=== PATIENT | male | born 1980 | race Caucasian/White ===

== ENCOUNTER 2019-01-04 12:26 | Inpatient (IN) | payer OTHER ==
[2019-01-04 13:16] VITALS: BMI 24.7
--- NOTE | 2019-01-04 15:19 | HP ---
CIWA Score Nausea/Vomitin Muscle Tremors: 2 Anxiety: 2 Agitation: 2 Paroxysmal Sweats: 1-Minimal Palms Moist Orientation: 0-Oriented Tacttile Disturbances: 1-Very Mild Itch/Numbness Auditory Disturbances: 1-Very Mild Visual Disturbances: 0-None Headache: 2-Mild CIWA-Ar Total Score: 13 - Admission Criteria OASAS Guidelines: Admission for Medically Managed Detox: Requires at least one of the followin. CIWA greater than 12 2. Seizures within the past 24 hours 3. Delirium tremens within the past 24 hours 4. Hallucinations within the past 24 hours 5. Acute intervention needed for co occurring medical disorder 6. Acute intervention needed for co occurring psychiatric disorder 7. Severe withdrawal that cannot be handled at a lower level of care (continued vomiting, continued diarrhea, abnormal vital signs) requiring intravenous medication and/or fluids 8. Admission ROS BHS - HPI Chief Complaint: i need help to stop drinking alcohol Allergies/Adverse Reactions: Allergies Allergy/AdvReac Type Severity Reaction Status Date / Time No Known Allergies Allergy Verified 01/04/19 13:43 History of Present Illness: this 38 years old male with alcohol dependence seeking detox,withdrawal symptom, last detox in 10/29 at [facility] dry skin history of balanitis nicotine dependence 6 cigarette/day weight loss no significant period of sobriety plan for out patient program syncope alcohol related Exam Limitations: No Limitations - Ebola screening Have you traveled outside of the country in the last 21 days: No Have you had contact with anyone from an Ebola affected area: No Have you been sick,other than usual withdrawal symptoms: Yes Do you have a fever: No - Review of Systems Constitutional: Loss of Appetite, Malaise, Night Sweats, Changes in sleep, Unintentional Wgt. Loss EENT: reports: Nose Congestion Respiratory: reports: No Symptoms reported Cardiac: reports: No Symptoms Reported GI: reports: Nausea, Poor Appetite, Indigestion : reports: No Symptoms Reported Musculoskeletal: reports: Back Pain, Muscle Pain Integumentary: reports: Dryness Neuro: reports: Headache, Tremors Endocrine: reports: No Symptoms Reported Hematology: reports: No Symptoms Reported Psychiatric: reports: No Sypmtoms Reported, Judgement Intact, Mood/Affect Appropiate, Orientated x3 Other Systems: Reviewed and Negative Patient History - Patient Medical History Hx Anemia: No Hx Asthma: No Hx Chronic Obstructive Pulmonary Disease (COPD): No Hx Cancer: No Hx Cardiac Disorders: No Hx Congestive Heart Failure: No Hx Hypertension: No Hx Hypercholesterolemia: No Hx Pacemaker: No HX Cerebrovascular Accident: No Hx Seizures: No Hx Dementia: No Hx Diabetes: No Hx Gastrointestinal Disorders: No Hx Liver Disease: No Hx Genitourinary Disorders: No Hx Sexually Transmitted Disorders: No Hx Renal Disease (ESRD): No Hx Thyroid Disease: No Hx Human Immunodeficiency Virus (HIV): No (last 10/29 negative) Hx Hepatitis C: No Hx Depression: No Hx Suicide Attempt: No Hx Bipolar Disorder: No Hx Schizophrenia: No Other Medical History: no suicidal,no homicidal - Patient Surgical History Past Surgical History: No Hx Neurologic Surgery: No Hx Cataract Extraction: No Hx Cardiac Surgery: No Hx Lung Surgery: No Hx Breast Surgery: No Hx Breast Biopsy: No Hx Abdominal Surgery: No Hx Appendectomy: No Hx Cholecystectomy: No Hx Genitourinary Surgery: No Hx Section: No Hx Orthopedic Surgery: No Anesthesia Reaction: No - PPD History Previous Implant?: Yes Documented Results: Negative w/o proof Implanted On Prior R Admission?: No PPD to be Administered?: Yes - Smoking Cessation Smoking history: Current every day smoker Aproximately how many cigarettes per day: 6 Cigars Per Day: 0 Hx Chewing Tobacco Use: No Initiated information on smoking cessation: Yes 'Breaking Loose' booklet given: 01/04/19 - Substance & Tx. History Hx Alcohol Use: Yes Hx Substance Use: Yes Substance Use Type: Alcohol Hx Substance Use Treatment: Yes (10/29 [facility] completed) - Substances Abused Alcohol Route: Oral Frequency: Daily Amount used: 6 CANS OF BEER: 1 SHOT OF MIR GOOSE Age of first use: 14 Date of Last Use: 01/04/19 Family Disease History - Family Disease History Family History: Denies Admission Physical Exam BHS - Vital Signs Vital Signs: Vital Signs - 24 hr 01/04/19 13:13 Temperature 97.8 F Pulse Rate 66 Respiratory 18 Rate Blood Pressure 124/82 - Physical General Appearance: Yes: Moderate Distress, Tremorous, Irritable, Sweating, Anxious HEENTM: Yes: Normal ENT Inspection, ADRIANA, Pharynx Normal Respiratory: Yes: Lungs Clear, Normal Breath Sounds, No Respiratory Distress Neck: Yes: Within Normal Limits, Supple, Trachea in good position Breast: Yes: Within Normal Limits Cardiology: Yes: Within Normal Limits, Regular Rhythm, Regular Rate, S1, S2 Abdominal: Yes: Within Normal Limits, Normal Bowel Sounds, Non Tender, Flat, Soft Genitourinary: Yes: Within Normal Limits Back: Yes: Muscle Spasm Musculoskeletal: Yes: Back pain, Muscle Pain Extremities: Yes: Within Normal Limits, Tremors 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 NML intact, Fully Oriented, Alert, Motor Strength 5/5 Integumentary: Yes: Dry Lymphatic: Yes: Within Normal Limits - Diagnostic (1) Alcohol dependence with uncomplicated withdrawal Current Visit: Yes Status: Acute (2) Alcohol dependence, uncomplicated Current Visit: Yes Status: Acute (3) Syncope Current Visit: Yes Status: Acute (4) Weight loss Current Visit: Yes Status: Acute (5) Dehydration Current Visit: Yes Status: Acute (6) Dry skin Current Visit: Yes Status: Acute (7) Balanitis Current Visit: Yes Status: Acute Cleared for Admission [facility] - Detox or Rehab [facility] Level of Care: Medically Managed Detox Regimen/Protocol: Librium [facility] Breath Alcohol Content Breath Alcohol Content: 0 Urine Drug Screen - Results Drug Screen Negative: Yes Inpatient Rehab Admission - Rehab Decision to Admit Inpatient rehab admission?: No
[2019-01-04] MEDS ORDERED: METHOCARBAMOL 500 MG TABLET PO PRN (15:29)
[2019-01-04] MEDS ORDERED: MAGNESIUM CITRATE 300 ML BOTTLE PO PRN (15:29)
[2019-01-04] MEDS ORDERED: hydrOXYzine PAMOATE 25 MG CAPSULE (FP) PO PRN (15:29)
[2019-01-04] MEDS ORDERED: MAGNESIUM HYDROX 2400MG/30ML ORAL SUSPENSION 30 ML CUP PO PRN (15:29)
[2019-01-04] MEDS ORDERED: chlordiazePOXIDE HCL 25 MG CAPSULE PO PRN (15:29)
[2019-01-04] MEDS ORDERED: MAG HYDROX/AL HYDROX/SIMETH 30 ML UNIT-DOSE CUP PO PRN (15:29)
[2019-01-04] MEDS ORDERED: MENTHOL/PHENOL 1 EACH UD MM PRN (15:29)
[2019-01-04] MEDS ORDERED: ACETAMINOPHEN 325 MG TABLET (FP) PO PRN ×2 (15:29)
[2019-01-04] MEDS ORDERED: BISMUTH SUBSALICYLATE 524 MG/30 ML UD PO PRN (15:29)
[2019-01-04] MEDS ORDERED: IBUPROFEN 400 MG TABLET (FP) PO PRN (15:29)
[2019-01-04] MEDS ORDERED: COLLOIDAL OATMEAL 1 BAR EACH TP PRN (15:36)
[2019-01-04] MEDS: chlordiazePOXIDE HCL 25 MG CAPSULE PO SCH ×2 (16:56→22:56)
[2019-01-04] MEDS ORDERED: AMMONIUM LACTATE 12% LOTION 225 GM BOTTLE TP SCH (22:00)
[2019-01-04] MEDS: NYSTATIN 100,000 UNIT/GM TOPICAL CREAM 15 GM TUBE TP SCH (22:55)
[2019-01-04] MEDS: THIAMINE HCL 100 MG TABLET (FP) PO SCH (22:56)
[2019-01-04] MEDS: MELATONIN 5 MG TABLETS PO PRN (22:56)
[2019-01-05] MEDS: chlordiazePOXIDE HCL 25 MG CAPSULE PO SCH ×4 (05:44→22:16)
[2019-01-05] MEDS: NYSTATIN 100,000 UNIT/GM TOPICAL CREAM 15 GM TUBE TP SCH ×2 (10:17→22:15)
[2019-01-05] MEDS: PRENATAL VITAMINS W/ FOLIC ACID TABLET (FP) PO SCH (10:17)
[2019-01-05 10:42] LABS: HEMATOCRIT 44.6 % (35.4-49); HEMOGLOBIN 14.5 GM/dL (11.7-16.9); MCH 30.3 pg (25.7-33.7); MCHC 32.6 g/dl (32.0-35.9); MEAN CELL VOLUME 92.9 fl (80-96); MEAN PLT VOLUME 9.5 fl (7.5-11.1); PLATELET COUNT 238 K/MM3 (134-434); RDW 13.5 % (11.9-15.9); WHITE BLOOD COUNT 7.2 K/mm3 (4.0-10.0)
[2019-01-05 11:23] LABS: SICKLE CELL SCREEN NEGATIVE (NEGATIVE)
[2019-01-05 11:35] LABS: ALBUMIN 4.1 g/dl (3.4-5.0); ALK PHOS 74 U/L (45-117); ANION GAP 6 MMOL/L (8-16); BILIRUBIN,TOTAL 0.3 mg/dL (0.2-1); BLOOD UREA NITROGEN 17 mg/dL (7-18); CALCIUM 8.8 mg/dL (8.5-10.1); CHLORIDE 104 mmol/L (98-107); CO2 26 mmol/L (21-32); CREATININE 1.1 mg/dL (0.55-1.3); GLUCOSE,RANDOM 96 mg/dL (74-106); POTASSIUM 4.2 mmol/L (3.5-5.1); SGOT/AST 17 U/L (15-37); SGPT/ALT 21 U/L (13-61); SODIUM 136 mmol/L (136-145); TOT PROT 7.2 g/dl (6.4-8.2)
--- NOTE | 2019-01-05 11:52 | EKG ---
Test Reason : Blood Pressure : / mmHG Vent. Rate : 063 BPM Atrial Rate : 063 BPM P-R Int : 166 ms QRS Dur : 110 ms QT Int : 384 ms P-R-T Axes : 065 032 041 degrees QTc Int : 392 ms NORMAL SINUS RHYTHM NORMAL ECG NO PREVIOUS ECGS AVAILABLE Confirmed by SARAH BETH MARTINEZ MD ([id number]) on 01/05/2019 11:52:19 AM Referred By: Confirmed By:SARAH BETH MARTINEZ MD
--- NOTE | 2019-01-05 14:32 | PN ---
[facility] CIWA - CIWA Score Nausea/Vomitin-No Nausea/No Vomiting Muscle Tremors: 1-None Visible, but [place] Anxiety: 1-Mildly Anxious Agitation: 1-Slight > Activity Paroxysmal Sweats: 1-Minimal Palms Moist Orientation: 1-Uncertain about Date Tacttile Disturbances: 0-None Auditory Disturbances: 0-None Visual Disturbances: 0-None Headache: 0-None Present CIWA-Ar Total Score: 5 S Progress Note (SOAP) Subjective: doing ok today with librium protocol tolerate food and fluid well Objective: 01/05/19 15:03 Vital Signs Temperature 98.1 F 01/05/19 14:54 Pulse Rate 66 01/05/19 14:54 Respiratory Rate 16 01/05/19 14:54 Blood Pressure 120/76 01/05/19 14:54 O2 Sat by Pulse Oximetry (%) Laboratory Last Values WBC 7.2 K/mm3 (4.0-10.0) 01/05/19 06:00 RBC 4.80 M/mm3 (4.00-5.60) 01/05/19 06:00 Hgb 14.5 GM/dL (11.7-16.9) 01/05/19 06:00 Hct 44.6 % (35.4-49) 01/05/19 06:00 MCV 92.9 fl (80-96) 01/05/19 06:00 MCH 30.3 pg (25.7-33.7) 01/05/19 06:00 MCHC 32.6 g/dl (32.0-35.9) 01/05/19 06:00 RDW 13.5 % (11.9-15.9) 01/05/19 06:00 Plt Count 238 K/MM3 (134-434) 01/05/19 06:00 MPV 9.5 fl (7.5-11.1) 01/05/19 06:00 Sickle Cell Screen Negative (NEGATIVE) 01/05/19 06:00 Sodium 136 mmol/L (136-145) 01/05/19 06:00 Potassium 4.2 mmol/L (3.5-5.1) 01/05/19 06:00 Chloride 104 mmol/L (98-107) 01/05/19 06:00 Carbon Dioxide 26 mmol/L (21-32) 01/05/19 06:00 Anion Gap 6 MMOL/L (8-16) L 01/05/19 06:00 BUN 17 mg/dL (7-18) 01/05/19 06:00 Creatinine 1.1 mg/dL (0.55-1.3) 01/05/19 06:00 Creat Clearance w eGFR 75.32 (>60) 01/05/19 06:00 Random Glucose 96 mg/dL (74-106) 01/05/19 06:00 Calcium 8.8 mg/dL (8.5-10.1) 01/05/19 06:00 Total Bilirubin 0.3 mg/dL (0.2-1) 01/05/19 06:00 AST 17 U/L (15-37) 01/05/19 06:00 ALT 21 U/L (13-61) 01/05/19 06:00 Alkaline Phosphatase 74 U/L (45-117) 01/05/19 06:00 Total Protein 7.2 g/dl (6.4-8.2) 01/05/19 06:00 Albumin 4.1 g/dl (3.4-5.0) 01/05/19 06:00 Urine Color Yellow 01/05/19 11:40 Urine Appearance Clear 01/05/19 11:40 Urine pH 5.5 (5.0-8.0) 01/05/19 11:40 Ur Specific [place] 1.005 (1.010-1.035) L 01/05/19 11:40 Urine Protein Negative (NEGATIVE) 01/05/19 11:40 Urine Glucose (UA) Negative (NEGATIVE) 01/05/19 11:40 Urine Ketones Negative (NEGATIVE) 01/05/19 11:40 Urine Blood Negative (NEGATIVE) 01/05/19 11:40 Urine Nitrite Negative (NEGATIVE) 01/05/19 11:40 Urine Bilirubin Negative (NEGATIVE) 01/05/19 11:40 Urine Urobilinogen 0.2 mg/dL (0.2-1.0) 01/05/19 11:40 Ur Leukocyte Esterase Negative (NEGATIVE) 01/05/19 11:40 RPR Titer Nonreactive (NONREACTIVE) 01/05/19 08:00 HIV 1&2 Antibody Screen Negative 01/05/19 06:00 HIV P24 Antigen Negative 01/05/19 06:00 lab noted Assessment: 01/05/19 15:05 withdrawal sx Plan: continue detox
[2019-01-05 14:55] LABS: PH,URINE 5.5 (5.0-8.0); URINE APPEARANCE CLEAR; URINE BILIRUBIN NEGATIVE (NEGATIVE); URINE COLOR YELLOW; URINE GLUCOSE (UA) NEGATIVE (NEGATIVE); URINE KETONE NEGATIVE (NEGATIVE); URINE LEUK ESTERASE NEGATIVE (NEGATIVE); URINE NITRITE NEGATIVE (NEGATIVE); URINE PROTEIN NEGATIVE (NEGATIVE); URINE UROBILINOGEN 0.2 mg/dL (0.2-1.0)
[2019-01-05] MEDS: MELATONIN 5 MG TABLETS PO PRN (22:16)
[2019-01-05] MEDS: THIAMINE HCL 100 MG TABLET (FP) PO SCH (22:16)
[2019-01-06] MEDS: chlordiazePOXIDE HCL 25 MG CAPSULE PO SCH ×2 (05:45→10:22)
[2019-01-06] MEDS: PRENATAL VITAMINS W/ FOLIC ACID TABLET (FP) PO SCH (10:22)
[2019-01-06] MEDS: NYSTATIN 100,000 UNIT/GM TOPICAL CREAM 15 GM TUBE TP SCH (10:22)
--- NOTE | 2019-01-06 16:29 | PN ---
[facility] CIWA - CIWA Score Nausea/Vomitin-No Nausea/No Vomiting Muscle Tremors: 2 Anxiety: 3 Agitation: 0-Normal Activity Paroxysmal Sweats: 2 Orientation: 0-Oriented Tacttile Disturbances: 2-Mild Itch/Numbness/Burn Auditory Disturbances: 2-Mild Harshness/Frighten Visual Disturbances: 1-Very Mild Sensitivity Headache: 0-None Present CIWA-Ar Total Score: 12 BHS Progress Note (SOAP) Subjective: Sweating, Tremors (Mild), Anxious. Objective: PATIENT A & O X 3, OBSERVED AMBULATING ON UNIT. IN NO ACUTE DISTRESS. 01/06/19 16:28 Vital Signs Temperature 98.4 F 01/06/19 13:42 Pulse Rate 62 01/06/19 13:42 Respiratory Rate 18 01/06/19 13:42 Blood Pressure 104/60 01/06/19 13:42 O2 Sat by Pulse Oximetry (%) Laboratory Tests 01/05/19 01/05/19 01/05/19 06:00 06:00 06:00 WBC 7.2 RBC 4.80 Hgb 14.5 Hct 44.6 MCV 92.9 MCH 30.3 MCHC 32.6 RDW 13.5 Plt Count 238 MPV 9.5 Sickle Cell Screen Negative Sodium 136 Potassium 4.2 Chloride 104 Carbon Dioxide 26 Anion Gap 6 L BUN 17 Creatinine 1.1 Creat Clearance w eGFR 75.32 Random Glucose 96 Calcium 8.8 Total Bilirubin 0.3 AST 17 ALT 21 Alkaline Phosphatase 74 Total Protein 7.2 Albumin 4.1 Urine Color Urine Appearance Urine pH Ur Specific [place] Urine Protein Urine Glucose (UA) Urine Ketones Urine Blood Urine Nitrite Urine Bilirubin Urine Urobilinogen Ur Leukocyte Esterase RPR Titer HIV 1&2 Antibody Screen Negative HIV P24 Antigen Negative 01/05/19 01/05/19 08:00 11:40 WBC RBC Hgb Hct MCV MCH MCHC RDW Plt Count MPV Sickle Cell Screen Sodium Potassium Chloride Carbon Dioxide Anion Gap BUN Creatinine Creat Clearance w eGFR Random Glucose Calcium Total Bilirubin AST ALT Alkaline Phosphatase Total Protein Albumin Urine Color Yellow Urine Appearance Clear Urine pH 5.5 Ur Specific [place] 1.005 L Urine Protein Negative Urine Glucose (UA) Negative Urine Ketones Negative Urine Blood Negative Urine Nitrite Negative Urine Bilirubin Negative Urine Urobilinogen 0.2 Ur Leukocyte Esterase Negative RPR Titer Nonreactive HIV 1&2 Antibody Screen HIV P24 Antigen LABS NOTED. Assessment: 01/06/19 16:29 WITHDRAWAL SYMPTOMS. Plan: CONTINUE DETOX.
[2019-01-06] MEDS ORDERED: chlordiazePOXIDE HCL 10 MG CAPSULE PO PRN (17:00)
[2019-01-06] MEDS ORDERED: chlordiazePOXIDE HCL 10 MG CAPSULE PO SCH (17:00)
--- NOTE | 2019-01-06 17:26 | DS ---
[facility] Detox Discharge Summary Admission Date: 01/04/19 Discharge Date: 01/06/19 - Physical Exam Results Vital Signs: Vital Signs Temperature 98.4 F 01/06/19 13:42 Pulse Rate 62 01/06/19 13:42 Respiratory Rate 18 01/06/19 13:42 Blood Pressure 104/60 01/06/19 13:42 O2 Sat by Pulse Oximetry (%) - Treatment Hospital Course: Detox Protocol Followed - Medication Discharge Medications: Ambulatory Orders Nystatin Cream [Mycostatin] 1 applic TP BID 01/04/19 Parab/Cet Alc/Stryl Alc/Pg/Sls [Cetaphil Daily Facial Cleanser] 473 ml TP BID - AMA Did Patient Leave Against Medical Advice: Yes (states " I have things to take care of at home " )
[2019-01-06 17:31] VITALS: BP 125/72; PULSE 77; TEMP 98.5
[2019-01-07] MEDS ORDERED: chlordiazePOXIDE HCL 10 MG CAPSULE PO SCH (17:00)
== END 2019-01-06 17:50 | disposition left against medical advice (07) | DRG 770 ==
LOC: YASAS 12:26 → Y3N 15:45
PROVIDERS: ADMIT Surgery; ATTEND Surgery
PROC: HZ2ZZZZ Detoxification Services for Substance Abuse Treatment (ICD-10-PCS; principal; 2019-01-04)
DX: F10.230 Alcohol dependence with withdrawal, uncomplicated (principal); R55 Syncope and collapse; E86.0 Dehydration; L85.3 Xerosis cutis; N48.1 Balanitis; R63.4 Abnormal weight loss; Z68.24 Body mass index [BMI] 24.0-24.9, adult
CPT/HCPCS: 36415; 80053; 81003; 85027; 85660; 86593; 87389; 93005; 93010

== ENCOUNTER 2019-02-11 10:36 | Inpatient (IN) | payer OTHER ==
[2019-02-11 12:54] VITALS: BMI 27.6
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
[2019-02-11] MEDS ORDERED: MAGNESIUM HYDROX 2400MG/30ML ORAL SUSPENSION 30 ML CUP PO PRN (14:09)
[2019-02-11] MEDS ORDERED: MAG HYDROX/AL HYDROX/SIMETH 30 ML UNIT-DOSE CUP PO PRN (14:09)
[2019-02-11] MEDS ORDERED: BISMUTH SUBSALICYLATE 524 MG/30 ML UD PO PRN (14:09)
[2019-02-11] MEDS ORDERED: ACETAMINOPHEN 325 MG TABLET (FP) PO PRN (14:09)
[2019-02-11] MEDS ORDERED: IBUPROFEN 400 MG TABLET (FP) PO PRN (14:09)
[2019-02-11] MEDS ORDERED: MELATONIN 5 MG TABLETS PO PRN (14:09)
[2019-02-11] MEDS ORDERED: hydrOXYzine PAMOATE 25 MG CAPSULE (FP) PO PRN (14:09)
[2019-02-11] MEDS ORDERED: MAGNESIUM CITRATE 300 ML BOTTLE PO PRN (14:09)
[2019-02-11] MEDS ORDERED: MENTHOL/PHENOL 1 EACH UD MM PRN (14:09)
[2019-02-11] MEDS ORDERED: METHOCARBAMOL 500 MG TABLET PO PRN (14:09)
[2019-02-11] MEDS ORDERED: chlordiazePOXIDE HCL 25 MG CAPSULE PO PRN (14:09)
[2019-02-11] MEDS ORDERED: chlordiazePOXIDE HCL 25 MG CAPSULE PO ONE (14:45)
[2019-02-11] MEDS: chlordiazePOXIDE HCL 25 MG CAPSULE PO SCH ×2 (17:36→22:32)
[2019-02-11] MEDS: COLLOIDAL OATMEAL 1 BAR EACH TP PRN (22:31)
[2019-02-11] MEDS: THIAMINE HCL 100 MG TABLET (FP) PO SCH (22:32)
[2019-02-11] MEDS: NYSTATIN 100000 UNIT/GM TOPICAL OINTMENT 15 GM TUBE TP SCH (22:33)
[2019-02-11] MEDS: MINERAL OIL/PET HY-PHL TOPICAL OINTMENT 454 GM JAR TP SCH (22:36)
[2019-02-12] MEDS: chlordiazePOXIDE HCL 25 MG CAPSULE PO SCH ×4 (06:03→22:18)
[2019-02-12] MEDS: PRENATAL VITAMINS W/ FOLIC ACID TABLET (FP) PO SCH (10:50)
[2019-02-12] MEDS: NYSTATIN 100000 UNIT/GM TOPICAL OINTMENT 15 GM TUBE TP SCH ×2 (10:51→22:18)
[2019-02-12] MEDS: MINERAL OIL/PET HY-PHL TOPICAL OINTMENT 454 GM JAR TP SCH ×2 (10:51→22:18)
[2019-02-12 10:52] LABS: HEMATOCRIT 43.3 % (35.4-49); HEMOGLOBIN 14.7 GM/dL (11.7-16.9); MCH 31.2 pg (25.7-33.7); MCHC 33.9 g/dl (32.0-35.9); MEAN CELL VOLUME 92.2 fl (80-96); MEAN PLT VOLUME 8.8 fl (7.5-11.1); PLATELET COUNT 248 K/MM3 (134-434); RDW 13.2 % (11.9-15.9)
[2019-02-12 12:52] LABS: ALBUMIN 3.9 g/dl (3.4-5.0); ALK PHOS 65 U/L (45-117); ANION GAP 7 MMOL/L (8-16); BILIRUBIN,TOTAL 0.5 mg/dL (0.2-1); BLOOD UREA NITROGEN 11 mg/dL (7-18); CALCIUM 8.9 mg/dL (8.5-10.1); CHLORIDE 104 mmol/L (98-107); CO2 27 mmol/L (21-32); GLUCOSE,RANDOM 84 mg/dL (74-106); POTASSIUM 3.7 mmol/L (3.5-5.1); SGOT/AST 15 U/L (15-37); SGPT/ALT 25 U/L (13-61); SODIUM 138 mmol/L (136-145); TOT PROT 6.9 g/dl (6.4-8.2)
--- NOTE | 2019-02-12 15:37 | PN ---
S CIWA - CIWA Score Nausea/Vomitin Muscle Tremors: 4-Moderate,w/Arms Extend Anxiety: 3 Agitation: 3 Paroxysmal Sweats: 3 Orientation: 0-Oriented Tacttile Disturbances: 0-None Auditory Disturbances: 0-None Visual Disturbances: 0-None Headache: 0-None Present CIWA-Ar Total Score: 15 S Progress Note (SOAP) Subjective: Sweating, headache 04/19 Objective: 02/12/19 15:35 Last Vital Signs Temp Pulse Resp BP Pulse Ox 97.7 F 68 18 116/65 02/12/19 14:01 02/12/19 14:01 02/12/19 14:01 02/12/19 14:01 Laboratory Tests 02/12/19 02/12/19 02/12/19 07:50 07:50 07:50 WBC 7.0 RBC 4.70 Hgb 14.7 Hct 43.3 MCV 92.2 MCH 31.2 MCHC 33.9 RDW 13.2 Plt Count 248 MPV 8.8 Sodium 138 Potassium 3.7 Chloride 104 Carbon Dioxide 27 Anion Gap 7 L BUN 11 Creatinine 1.0 Creat Clearance w eGFR 84.08 Random Glucose 84 Calcium 8.9 Total Bilirubin 0.5 AST 15 ALT 25 Alkaline Phosphatase 65 Total Protein 6.9 Albumin 3.9 RPR Titer Nonreactive HIV 1&2 Antibody Screen HIV P24 Antigen 02/12/19 07:50 WBC RBC Hgb Hct MCV MCH MCHC RDW Plt Count MPV Sodium Potassium Chloride Carbon Dioxide Anion Gap BUN Creatinine Creat Clearance w eGFR Random Glucose Calcium Total Bilirubin AST ALT Alkaline Phosphatase Total Protein Albumin RPR Titer HIV 1&2 Antibody Screen Negative HIV P24 Antigen Negative Labs reviewed Assessment: 02/12/19 15:36 Withdrawal symptoms Plan: Continue detox Encouraged PO water hydration
[2019-02-12] MEDS: THIAMINE HCL 100 MG TABLET (FP) PO SCH (22:18)
[2019-02-13] MEDS: chlordiazePOXIDE HCL 25 MG CAPSULE PO SCH ×2 (05:52→10:23)
[2019-02-13] MEDS: NYSTATIN 100000 UNIT/GM TOPICAL OINTMENT 15 GM TUBE TP SCH ×2 (10:23→22:42)
[2019-02-13] MEDS: PRENATAL VITAMINS W/ FOLIC ACID TABLET (FP) PO SCH (10:23)
[2019-02-13] MEDS: MINERAL OIL/PET HY-PHL TOPICAL OINTMENT 454 GM JAR TP SCH ×2 (10:24→22:42)
--- NOTE | 2019-02-13 11:36 | PN ---
S CIWA - CIWA Score Nausea/Vomitin-No Nausea/No Vomiting Muscle Tremors: 3 Anxiety: 4-Mod. Anxious/Guarded Agitation: 2 Paroxysmal Sweats: 3 Orientation: 0-Oriented Tacttile Disturbances: 1-Very Mild Itch/Numbness Auditory Disturbances: 0-None Visual Disturbances: 0-None Headache: 2-Mild CIWA-Ar Total Score: 15 BHS Progress Note (SOAP) Subjective: Hot / Cold Sensations, Tremors, H/A. Objective: PATIENT A & O X 3, OBSERVED AMBULATING ON UNIT UNASSISTED. IN NO ACUTE DISTRESS. 02/13/19 11:35 Vital Signs Temperature 97.9 F 02/13/19 09:25 Pulse Rate 67 02/13/19 09:25 Respiratory Rate 18 02/13/19 09:25 Blood Pressure 112/80 02/13/19 09:25 O2 Sat by Pulse Oximetry (%) Laboratory Tests 02/12/19 02/12/19 02/12/19 07:50 07:50 07:50 WBC 7.0 RBC 4.70 Hgb 14.7 Hct 43.3 MCV 92.2 MCH 31.2 MCHC 33.9 RDW 13.2 Plt Count 248 MPV 8.8 Sodium 138 Potassium 3.7 Chloride 104 Carbon Dioxide 27 Anion Gap 7 L BUN 11 Creatinine 1.0 Creat Clearance w eGFR 84.08 Random Glucose 84 Calcium 8.9 Total Bilirubin 0.5 AST 15 ALT 25 Alkaline Phosphatase 65 Total Protein 6.9 Albumin 3.9 RPR Titer Nonreactive HIV 1&2 Antibody Screen HIV P24 Antigen 02/12/19 07:50 WBC RBC Hgb Hct MCV MCH MCHC RDW Plt Count MPV Sodium Potassium Chloride Carbon Dioxide Anion Gap BUN Creatinine Creat Clearance w eGFR Random Glucose Calcium Total Bilirubin AST ALT Alkaline Phosphatase Total Protein Albumin RPR Titer HIV 1&2 Antibody Screen Negative HIV P24 Antigen Negative LABS NOTED. Assessment: 02/13/19 11:36 WITHDRAWAL SYMPTOMS. Plan: CONTINUE DETOX. INCREASE DAILY PO FLUID / WATER INTAKE.
--- NOTE | 2019-02-13 15:25 | PN ---
[facility] Progress Note Note: Patient reports that he has had "a growth on his penis" for > 1 year now, for which he has consulted other medical providers with no resulting resolution to the condition. Patient denies discomfort or sensation of itch at affected site. Patient unable to discern any precipitating fact that might have caused condition to develop including any previous sexual contact. Several Small flat erythematous patches visualized near tip of penis. White, clear, milk-colored liquid noted on tip and shaft of penis. Based on Patient's report, it sounds as if he primarily gone to Hospital ER's for assessment of this condition since it started. However, Patient deos report that he did one time consult his CATALOGING ASSISTANT, Dr. Choudhary ([place], [place]) for this condition; however, treatment / medication recommended by Dr. Choudhary was not effective for condition, according to Patient. Patient advised to consult Dr. Choudhary once again after discharge from Detox unit for further medical evaluation of this condition. Patient also advised to thoroughly wash dry and penis daily and to wash hands before and after touching penis. Patient notes that he has had sexual contact with other people since this condition began to develop. Patient advised to attempt, as much as possible, to try to contact those persons and recommend that they go for general Medical Examination and for STD Testing. Patient verbalized understanding of all recommendations. Yue Delaney NP
[2019-02-13] MEDS ORDERED: chlordiazePOXIDE HCL 10 MG CAPSULE PO PRN (17:00)
[2019-02-13] MEDS: chlordiazePOXIDE HCL 10 MG CAPSULE PO SCH ×2 (18:15→22:42)
[2019-02-13] MEDS: COLLOIDAL OATMEAL 1 BAR EACH TP PRN (18:16)
[2019-02-13] MEDS: THIAMINE HCL 100 MG TABLET (FP) PO SCH (22:41)
[2019-02-14] MEDS: chlordiazePOXIDE HCL 10 MG CAPSULE PO SCH ×2 (06:00→10:11)
[2019-02-14 08:19] VITALS: BP 99/56; PULSE 59; TEMP 97.3
[2019-02-14] MEDS: MINERAL OIL/PET HY-PHL TOPICAL OINTMENT 454 GM JAR TP SCH (10:11)
[2019-02-14] MEDS: PRENATAL VITAMINS W/ FOLIC ACID TABLET (FP) PO SCH (10:11)
[2019-02-14] MEDS: NYSTATIN 100000 UNIT/GM TOPICAL OINTMENT 15 GM TUBE TP SCH (10:12)
--- NOTE | 2019-02-14 10:36 | PN ---
S Progress Note (SOAP) Subjective: alert,irritable,anxious,interrupted sleep Objective: 02/14/19 10:36 Vital Signs Temperature 97.3 F L 02/14/19 08:18 Pulse Rate 59 L 02/14/19 08:18 Respiratory Rate 18 02/14/19 08:18 Blood Pressure 99/56 L 02/14/19 08:18 O2 Sat by Pulse Oximetry (%) Assessment: 02/14/19 10:36 withdrawal symptom Plan: continue detox,discharge in am
--- NOTE | 2019-02-14 13:04 | PN ---
S Progress Note Note: patient would like to leave due to personal problem,stable for discharge,follow up with after care program as arrangement and medical provider for medical problem
--- NOTE | 2019-02-14 13:04 | DS ---
[facility] Detox Discharge Summary Admission Date: 02/11/19 Discharge Date: 02/14/19 - History Present History: Alcohol Dependence Additional Comments: follow up with after care program as arrangement and medical provider for medical problem Pertinent Past History: weight loss balanitis - Physical Exam Results Vital Signs: Vital Signs Temperature 97.3 F L 02/14/19 08:18 Pulse Rate 59 L 02/14/19 08:18 Respiratory Rate 18 02/14/19 08:18 Blood Pressure 99/56 L 02/14/19 08:18 O2 Sat by Pulse Oximetry (%) Pertinent Admission Physical Exam Findings: withdrawal signs and symptom Vital Signs Temperature 97.3 F L 02/14/19 08:18 Pulse Rate 59 L 02/14/19 08:18 Respiratory Rate 18 02/14/19 08:18 Blood Pressure 99/56 L 02/14/19 08:18 O2 Sat by Pulse Oximetry (%) Laboratory Last Values WBC 7.0 K/mm3 (4.0-10.0) 02/12/19 07:50 RBC 4.70 M/mm3 (4.00-5.60) 02/12/19 07:50 Hgb 14.7 GM/dL (11.7-16.9) 02/12/19 07:50 Hct 43.3 % (35.4-49) 02/12/19 07:50 MCV 92.2 fl (80-96) 02/12/19 07:50 MCH 31.2 pg (25.7-33.7) 02/12/19 07:50 MCHC 33.9 g/dl (32.0-35.9) 02/12/19 07:50 RDW 13.2 % (11.9-15.9) 02/12/19 07:50 Plt Count 248 K/MM3 (134-434) 02/12/19 07:50 MPV 8.8 fl (7.5-11.1) 02/12/19 07:50 Sodium 138 mmol/L (136-145) 02/12/19 07:50 Potassium 3.7 mmol/L (3.5-5.1) 02/12/19 07:50 Chloride 104 mmol/L (98-107) 02/12/19 07:50 Carbon Dioxide 27 mmol/L (21-32) 02/12/19 07:50 Anion Gap 7 MMOL/L (8-16) L 02/12/19 07:50 BUN 11 mg/dL (7-18) 02/12/19 07:50 Creatinine 1.0 mg/dL (0.55-1.3) 02/12/19 07:50 Creat Clearance w eGFR 84.08 (>60) 02/12/19 07:50 Random Glucose 84 mg/dL (74-106) 02/12/19 07:50 Calcium 8.9 mg/dL (8.5-10.1) 02/12/19 07:50 Total Bilirubin 0.5 mg/dL (0.2-1) 02/12/19 07:50 AST 15 U/L (15-37) 02/12/19 07:50 ALT 25 U/L (13-61) 02/12/19 07:50 Alkaline Phosphatase 65 U/L (45-117) 02/12/19 07:50 Total Protein 6.9 g/dl (6.4-8.2) 02/12/19 07:50 Albumin 3.9 g/dl (3.4-5.0) 02/12/19 07:50 RPR Titer Nonreactive (NONREACTIVE) 02/12/19 07:50 HIV 1&2 Antibody Screen Negative 02/12/19 07:50 HIV P24 Antigen Negative 02/12/19 07:50 - Treatment Hospital Course: Detox Protocol Followed, Detoxed Safely, Responded well, Discharged Condition Good Patient has Accepted a Rehab Referral to: declined - Medication Discharge Medications: Ambulatory Orders Nystatin Cream [Mycostatin] 1 applic TP BID 01/04/19 Parab/Cet Alc/Stryl Alc/Pg/Sls [Cetaphil Daily Facial Cleanser] 473 ml TP BID Mineral Oil/Pet Hy-Phl [Aquaphor -] 1 applic TP BID 02/11/19 - AMA Did Patient Leave Against Medical Advice: No
[2019-02-14] MEDS ORDERED: chlordiazePOXIDE HCL 10 MG CAPSULE PO SCH (17:00)
== END 2019-02-14 13:55 | disposition home or self-care (01) | DRG 775 ==
LOC: YASAS 10:36 → Y6N 14:30
PROVIDERS: ADMIT Surgery; ATTEND Surgery
PROC: HZ2ZZZZ Detoxification Services for Substance Abuse Treatment (ICD-10-PCS; principal; 2019-02-11)
DX: F10.230 Alcohol dependence with withdrawal, uncomplicated (principal); E86.0 Dehydration; N48.1 Balanitis; L85.3 Xerosis cutis; R55 Syncope and collapse; R63.4 Abnormal weight loss; Z68.27 Body mass index [BMI] 27.0-27.9, adult
CPT/HCPCS: 36415; 80053; 85027; 86593; 87389

== ENCOUNTER 2019-03-28 12:04 | Inpatient (IN) | payer OTHER | END 2019-03-30 03:50 | disposition other institution (70) | LOC: YASAS 12:04 → Y3N 16:20 ==

== ENCOUNTER 2019-03-30 15:58 | Inpatient (IN) | payer OTHER ==
--- NOTE | 2019-03-30 15:48 | HP ---
[facility] Rehab Assess/Revision - Admission History Admitted to Rehab from: [facility] Date of Admission to Rehab: 03/30/2019 - Vital signs Vital Signs: NOTED; STABLE. - Findings Detox History & Physical reviewed: Yes Concur with findings: Yes Comments/Additional Findings: PATIENT'S MEDICAL / MEDICATION HISTORY REVIEWED PRIOR TO DISCHARGE FROM DETOX UNIT. PATIENT WAS DISCHARGED FROM DETOX UNIT TO BE TAKEN OVER TO REHAB UNIT IN STABLE MEDICAL CONDITION. Inpatient Rehab Admission - Rehab Decision to Admit Inpatient rehab admission?: Yes - Initial Determination Are CD services needed?: Yes Free of communicable disease: Yes Not in need of hospitalization: Yes - Rehab Admission Criteria Previous failed treatment: Yes Poor recovery environment: Yes Comorbidities: No Lacks judgement: No Patient is meeting Inpatient Rehab admission criteria:: Yes
[~2019-03-30 15:58] MED LIST: ACETAMINOPHEN 325 MG TABLET (FP) PO PRN; IBUPROFEN 400 MG TABLET (FP) PO PRN; LOPERAMIDE HCL 2 MG CAPSULE PO PRN; MAG HYDROX/AL HYDROX/SIMETH 30 ML UNIT-DOSE CUP PO PRN; MAGNESIUM CITRATE 300 ML BOTTLE PO PRN; MAGNESIUM HYDROX 2400MG/30ML ORAL SUSPENSION 30 ML CUP PO PRN; MENTHOL/PHENOL 1 EACH UD MM PRN; NALOXONE HCL 0.4 MG/ML VIAL IVPUSH PRN; P-EPHED 60MG/TRIPROLIDI 2.5MG TABLET PO PRN; guaiFENesin 200 MG/10 ML 10 ML UNIT-DOSE CUPS PO PRN
--- NOTE | 2019-03-30 18:28 | PN ---
[facility] Progress Note Note: c/o of feeling anxious and with withdrawal sx, requested klonopin not receptive to vistaril. Gabapentin 100 mg tid ordered pending psych consult Continue to monitor
[2019-03-30] MEDS ORDERED: MELATONIN 5 MG TABLETS PO PRN (22:00)
[2019-03-30] MEDS: THIAMINE HCL 100 MG TABLET (FP) PO SCH (22:11)
[2019-03-30] MEDS: GABAPENTIN 100 MG CAPSULE (FP) PO SCH (22:11)
[2019-03-30] MEDS: CLOTRIMAZOLE 1% CREAM 15 GM TUBE TP SCH (22:12)
[2019-03-31] MEDS: GABAPENTIN 100 MG CAPSULE (FP) PO SCH ×3 (06:45→22:03)
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
[2019-03-31] MEDS ORDERED: COLLOIDAL OATMEAL 1 BAR EACH TP PRN (10:02)
[2019-03-31] MEDS: hydrOXYzine PAMOATE 50 MG CAPSULE (FP) PO PRN (11:06)
[2019-03-31] MEDS: cloNIDine HCL 0.1 MG TABLET PO PRN (11:06)
[2019-03-31] MEDS: PRENATAL VITAMINS W/ FOLIC ACID TABLET (FP) PO SCH (11:07)
[2019-03-31] MEDS: CLOTRIMAZOLE 1% CREAM 15 GM TUBE TP SCH ×2 (11:07→22:04)
[2019-03-31] MEDS: AMMONIUM LACTATE 12% LOTION 225 GM BOTTLE TP SCH (11:12)
[2019-03-31] MEDS: risperiDONE 1 MG TABLET (FP) PO SCH ×2 (11:13→22:04)
[2019-03-31] MEDS: THIAMINE HCL 100 MG TABLET (FP) PO SCH (22:03)
[2019-03-31] MEDS: SUVOREXANT 10 MG TABLET PO PRN (22:05)
[2019-04-01] MEDS: GABAPENTIN 100 MG CAPSULE (FP) PO SCH ×3 (06:40→21:48)
[2019-04-01] MEDS: cloNIDine HCL 0.1 MG TABLET PO PRN (06:42)
[2019-04-01] MEDS: CLOTRIMAZOLE 1% CREAM 15 GM TUBE TP SCH ×2 (10:41→21:49)
[2019-04-01] MEDS: AMMONIUM LACTATE 12% LOTION 225 GM BOTTLE TP SCH (10:41)
[2019-04-01] MEDS: PRENATAL VITAMINS W/ FOLIC ACID TABLET (FP) PO SCH (10:41)
[2019-04-01] MEDS: risperiDONE 1 MG TABLET (FP) PO SCH ×2 (10:41→21:48)
[2019-04-01] MEDS: THIAMINE HCL 100 MG TABLET (FP) PO SCH (21:48)
[2019-04-01] MEDS: SUVOREXANT 10 MG TABLET PO PRN (21:50)
[2019-04-02] MEDS: GABAPENTIN 100 MG CAPSULE (FP) PO SCH ×3 (07:22→21:45)
[2019-04-02] MEDS: CLOTRIMAZOLE 1% CREAM 15 GM TUBE TP SCH ×2 (10:40→21:46)
[2019-04-02] MEDS: risperiDONE 1 MG TABLET (FP) PO SCH ×2 (10:40→21:45)
[2019-04-02] MEDS: PRENATAL VITAMINS W/ FOLIC ACID TABLET (FP) PO SCH (10:40)
[2019-04-02] MEDS: AMMONIUM LACTATE 12% LOTION 225 GM BOTTLE TP SCH (10:40)
[2019-04-02] MEDS: cloNIDine HCL 0.1 MG TABLET PO PRN ×2 (10:42→21:45)
[2019-04-02] MEDS: hydrOXYzine PAMOATE 50 MG CAPSULE (FP) PO PRN (18:56)
[2019-04-02] MEDS: THIAMINE HCL 100 MG TABLET (FP) PO SCH (21:45)
[2019-04-03] MEDS: GABAPENTIN 100 MG CAPSULE (FP) PO SCH (06:22)
[2019-04-03 06:40] VITALS: BP 108/69; PULSE 57; TEMP 97.4
[2019-04-03] MEDS: cloNIDine HCL 0.1 MG TABLET PO PRN (10:51)
[2019-04-03] MEDS: AMMONIUM LACTATE 12% LOTION 225 GM BOTTLE TP SCH (10:51)
[2019-04-03] MEDS: CLOTRIMAZOLE 1% CREAM 15 GM TUBE TP SCH (10:51)
[2019-04-03] MEDS: PRENATAL VITAMINS W/ FOLIC ACID TABLET (FP) PO SCH (10:51)
[2019-04-03] MEDS: risperiDONE 1 MG TABLET (FP) PO SCH (10:52)
--- NOTE | 2019-04-03 14:44 | PN ---
[facility] Progress Note (SOAP) Subjective: PT DECLINED TO CONTINUE WITH REHAB AND STATED TO GUSSET STITCHER "I HAVE TO GO TAKE CARE OF MY KIDS. I NEED TO LEAVE TODAY". PT WAS ENCOURAGED BY STAFF AND GUSSET STITCHER TO STAY IN TREATMENT AND EXPLORE [facility] MAT OPTIONS OR REFERRAL TO [facility] IF PREFERRED BUT PT DECLINED AND INSISTS ON LEAVING TREATMENT TODAY . PT HAS BEEN REFERRED TO [facility] FOR CD AFTERCARE. PT IS ALERT O X 3. DENIES S/H/I. 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 Objective: 04/03/19 14:43 Vital Signs - 24 hr 04/02/19 04/03/19 04/03/19 21:00 00:30 03:30 Temperature Pulse Rate 67 Respiratory 18 18 Rate Blood Pressure 119/68 04/03/19 06:39 Temperature 97.4 F L Pulse Rate 57 L Respiratory 18 Rate Blood Pressure 108/69 Laboratory Tests 03/31/19 07:00 HIV 1&2 Antibody Screen Negative HIV P24 Antigen Negative Home Medications Medication Instructions Recorded Clotrimazole 1 applic TP BID 03/28/19 Gabapentin [Neurontin -] 100 mg PO TID #21 capsule 04/03/19 Naloxone HCl [Narcan] 4 mg NS ONCE #1 spray 04/03/19 Assessment: 04/03/19 14:44 NAD Plan: PT SIGNED OUT AMA FOLLOW UP WITH CD AFTERCARE AT [facility] D/W PT TO EXPLORE SUBOXONE MAT OR MMTP AT [facility] PROGRAM AFTER DISCHARGE.
== END 2019-04-03 13:15 | disposition left against medical advice (07) | DRG 770 ==
LOC: YASAS 15:58 → Y5N 15:59
PROVIDERS: ADMIT Neuromusculoskeletal Medicine & OMM; ATTEND Neuromusculoskeletal Medicine & OMM
PROC: HZ42ZZZ Group Counseling for Substance Abuse Treatment, Cognitive-Behavioral (ICD-10-PCS; principal; 2019-03-30)
DX: F11.20 Opioid dependence, uncomplicated (principal); F10.20 Alcohol dependence, uncomplicated; F17.210 Nicotine dependence, cigarettes, uncomplicated; F10.280 Alcohol dependence with alcohol-induced anxiety disorder; F10.282 Alcohol dependence with alcohol-induced sleep disorder; F20.0 Paranoid schizophrenia; L85.3 Xerosis cutis; N48.1 Balanitis
CPT/HCPCS: 36415; 87389; J0735; J2794

== ENCOUNTER 2022-10-21 16:43 | Inpatient (IN) | payer OTHER ==
[2022-10-21 17:07] VITALS: BMI 24.6
[2022-10-21] MEDS ORDERED: MAG HYDROX/AL HYDROX/SIMETH 30 ML UNIT-DOSE CUP PO PRN (18:20)
[2022-10-21] MEDS ORDERED: IBUPROFEN 400 MG TABLET (FP) PO PRN (18:20)
[2022-10-21] MEDS ORDERED: METHOCARBAMOL 500 MG TABLET PO PRN (18:20)
[2022-10-21] MEDS ORDERED: MAGNESIUM HYDROX 2400MG/30ML ORAL SUSPENSION 30 ML CUP PO PRN (18:20)
[2022-10-21] MEDS ORDERED: BENZOCAINE/MENTHOL (CHLORASEPTIC ) LOZENGE MM PRN (18:20)
[2022-10-21] MEDS ORDERED: BISMUTH SUBSALICYLATE 524 MG/30 ML PO PRN (18:20)
[2022-10-21] MEDS ORDERED: NICOTINE 10 MG CARTRIDGE (INHALER) IH PRN (18:20)
[2022-10-21] MEDS ORDERED: NALOXONE HCL (KLOXXADO) 8 MG SPRAY NS PRN (18:20)
[2022-10-21] MEDS ORDERED: ONDANSETRON *ODT* 4 MG TABLET SL PRN (18:20)
[2022-10-21] MEDS ORDERED: IBUPROFEN 600 MG TABLET (FP) PO PRN (18:20)
[2022-10-21] MEDS ORDERED: DICYCLOMINE HCL 10 MG CAPSULE PO PRN (18:20)
[2022-10-21] MEDS ORDERED: POLYETHYLENE GLYCOL (HEALTHYLAX) 3350 17 GM PACKET PO PRN (18:20)
[2022-10-21] MEDS ORDERED: LOPERAMIDE HCL 2 MG CAPSULE PO PRN (18:20)
[2022-10-21] MEDS ORDERED: ACETAMINOPHEN 325 MG TABLET (FP) PO PRN ×2 (18:20)
[2022-10-21] MEDS ORDERED: chlordiazePOXIDE HCL 25 MG CAPSULE PO PRN (19:17)
[2022-10-21] MEDS ORDERED: MELATONIN 5 MG TABLETS PO SCH (22:00)
[2022-10-21] MEDS ORDERED: DIVALPROEX SODIUM 250 MG TABLET E.C. PO ONE (22:00)
[2022-10-21] MEDS: THIAMINE HCL 100 MG TABLET (FP) PO SCH (22:03)
[2022-10-21] MEDS: chlordiazePOXIDE HCL 25 MG CAPSULE PO SCH (22:03)
[2022-10-22] MEDS: chlordiazePOXIDE HCL 25 MG CAPSULE PO SCH ×4 (05:35→22:42)
[2022-10-22 13:02] LABS: HEMATOCRIT 39.3 % (35.4-49); HEMOGLOBIN 13.2 GM/dL (11.7-16.9); MCH 29.9 pg (25.7-33.7); MCHC 33.4 g/dl (32.0-35.9); MEAN CELL VOLUME 89.4 fl (80-96); MEAN PLT VOLUME 8.9 fl (7.5-11.1); PLATELET COUNT 244 10^3/uL (134-434); RDW 14.2 % (11.9-15.9); WHITE BLOOD COUNT 9.4 K/mm3 (4.0-10.0)
[2022-10-22 13:15] LABS: CALCIUM 8.6 mg/dL (8.5-10.1)
[2022-10-22 13:16] LABS: ALBUMIN 3.6 g/dl (3.4-5.0); BLOOD UREA NITROGEN 9.8 mg/dL (7-18)
[2022-10-22 13:18] LABS: CREATININE 0.9 mg/dL (0.55-1.3)
[2022-10-22 13:19] LABS: BILIRUBIN,TOTAL 0.5 mg/dL (0.2-1); TOT PROT 6.3 g/dl (6.4-8.2)
[2022-10-22 14:11] LABS: HIV INTERPRETATION NEGATIVE (NEGATIVE)
[2022-10-22] MEDS: DIVALPROEX SODIUM 250 MG TABLET E.C. PO SCH ×2 (14:17→22:41)
[2022-10-22] MEDS: THIAMINE HCL 100 MG TABLET (FP) PO SCH (22:41)
[2022-10-22] MEDS: OLANZapine 7.5 MG TABLET PO SCH (22:44)
[2022-10-22] MEDS: traZODone HCL 50 MG TABLET (FP) PO SCH (22:49)
[2022-10-23] MEDS: chlordiazePOXIDE HCL 25 MG CAPSULE PO SCH ×4 (05:42→22:38)
[2022-10-23] MEDS: DIVALPROEX SODIUM 250 MG TABLET E.C. PO SCH ×2 (10:43→22:38)
[2022-10-23 17:58] VITALS: RESP 18
[2022-10-23] MEDS: THIAMINE HCL 100 MG TABLET (FP) PO SCH (22:38)
[2022-10-23] MEDS: OLANZapine 7.5 MG TABLET PO SCH (22:38)
[2022-10-23] MEDS: traZODone HCL 50 MG TABLET (FP) PO SCH (22:40)
[2022-10-24] MEDS ORDERED: chlordiazePOXIDE HCL 10 MG CAPSULE PO PRN
[2022-10-24] MEDS: chlordiazePOXIDE HCL 10 MG CAPSULE PO SCH ×2 (05:44→10:33)
[2022-10-24 09:50] VITALS: BP 118/68; PULSE 82; TEMP 98.1
[2022-10-24] MEDS: DIVALPROEX SODIUM 250 MG TABLET E.C. PO SCH (10:33)
[2022-10-25] MEDS ORDERED: chlordiazePOXIDE HCL 10 MG CAPSULE PO SCH (05:00)
[2022-10-26] MEDS ORDERED: chlordiazePOXIDE HCL 10 MG CAPSULE PO ONE (05:00)
== END 2022-10-24 12:55 | disposition home or self-care (01) | DRG 775 ==
LOC: YASAS 16:43 → Y6N 18:43
PROVIDERS: ADMIT Allergy & Immunology; ATTEND Surgery
PROC: HZ2ZZZZ Detoxification Services for Substance Abuse Treatment (ICD-10-PCS; principal; 2022-10-21)
DX: F10.230 Alcohol dependence with withdrawal, uncomplicated (principal); F12.20 Cannabis dependence, uncomplicated; F17.210 Nicotine dependence, cigarettes, uncomplicated; F10.282 Alcohol dependence with alcohol-induced sleep disorder; F10.280 Alcohol dependence with alcohol-induced anxiety disorder; F10.24 Alcohol dependence with alcohol-induced mood disorder; F20.0 Paranoid schizophrenia; F32.A Depression, unspecified; F41.9 Anxiety disorder, unspecified; N48.1 Balanitis
CPT/HCPCS: 36415; 80053; 80164; 85027; 86780; 87389; C9803-CS; U0003; U0005

== ENCOUNTER 2022-11-02 13:43 | Inpatient (IN) | payer OTHER ==
[2022-11-02 14:08] VITALS: BMI 26.2
[2022-11-02] MEDS ORDERED: NICOTINE POLACRILEX 2 MG GUM BC PRN (14:42)
[2022-11-02] MEDS ORDERED: MAG HYDROX/AL HYDROX/SIMETH 30 ML UNIT-DOSE CUP PO PRN (14:42)
[2022-11-02] MEDS ORDERED: IBUPROFEN 400 MG TABLET (FP) PO PRN (14:42)
[2022-11-02] MEDS ORDERED: MAGNESIUM HYDROX 2400MG/30ML ORAL SUSPENSION 30 ML CUP PO PRN (14:42)
[2022-11-02] MEDS ORDERED: POLYETHYLENE GLYCOL (HEALTHYLAX) 3350 17 GM PACKET PO PRN (14:42)
[2022-11-02] MEDS ORDERED: LOPERAMIDE HCL 2 MG CAPSULE PO PRN (14:42)
[2022-11-02] MEDS ORDERED: BENZOCAINE/MENTHOL (CHLORASEPTIC ) LOZENGE MM PRN (14:42)
[2022-11-02] MEDS ORDERED: NICOTINE 10 MG CARTRIDGE (INHALER) IH PRN (14:42)
[2022-11-02] MEDS ORDERED: hydrOXYzine PAMOATE 25 MG CAPSULE (FP) PO PRN (14:42)
[2022-11-02] MEDS ORDERED: P-EPHED 60MG/TRIPROLIDI 2.5MG TABLET PO PRN (14:42)
[2022-11-02] MEDS ORDERED: ACETAMINOPHEN 325 MG TABLET (FP) PO PRN (14:42)
[2022-11-02] MEDS ORDERED: guaiFENesin 200 MG/10 ML 10 ML UNIT-DOSE CUPS PO PRN (14:42)
[2022-11-02] MEDS: PRENATAL VITAMINS W/ FOLIC ACID TABLET (FP) PO SCH (20:05)
[2022-11-02] MEDS ORDERED: THIAMINE HCL 100 MG TABLET (FP) PO SCH (22:00)
[2022-11-02] MEDS ORDERED: MELATONIN 5 MG TABLETS PO SCH (22:00)
[2022-11-03] MEDS: PRENATAL VITAMINS W/ FOLIC ACID TABLET (FP) PO SCH (09:30)
[2022-11-03 11:13] LABS: HEMATOCRIT 44.2 % (35.4-49); HEMOGLOBIN 14.4 GM/dL (11.7-16.9); MCH 29.6 pg (25.7-33.7); MCHC 32.6 g/dl (32.0-35.9); MEAN CELL VOLUME 90.7 fl (80-96); MEAN PLT VOLUME 8.5 fl (7.5-11.1); PLATELET COUNT 264 10^3/uL (134-434); RBC 4.88 M/mm3 (4.00-5.60); RDW 14.4 % (11.9-15.9)
[2022-11-03 11:23] LABS: PH,URINE 7.5 (5.0-8.0); URINE APPEARANCE CLEAR; URINE BILIRUBIN NEGATIVE (NEGATIVE); URINE COLOR YELLOW; URINE GLUCOSE (UA) NEGATIVE (NEGATIVE); URINE KETONE NEGATIVE (NEGATIVE); URINE LEUK ESTERASE NEGATIVE (NEGATIVE); URINE NITRITE NEGATIVE (NEGATIVE); URINE PROTEIN NEGATIVE (NEGATIVE); URINE UROBILINOGEN 0.2 mg/dL (0.2-1.0)
[2022-11-03] MEDS ORDERED: OLANZapine 7.5 MG TABLET PO SCH ×2 (11:45→22:00)
[2022-11-03 12:33] LABS: CALCIUM 9.2 mg/dL (8.5-10.1)
[2022-11-03 12:34] LABS: ALBUMIN 4.2 g/dl (3.4-5.0); BLOOD UREA NITROGEN 11.1 mg/dL (7-18)
[2022-11-03 12:38] LABS: TOT PROT 7.6 g/dl (6.4-8.2)
[2022-11-03 12:39] LABS: BILIRUBIN,TOTAL 0.7 mg/dL (0.2-1)
[2022-11-03 12:52] LABS: SYPHILIS W/ RPR CONF NON-REACTIVE (NONREACTIVE)
[2022-11-03 18:58] VITALS: BP 119/80; PULSE 70; RESP 20; TEMP 97.8
[2022-11-03] MEDS ORDERED: DIVALPROEX SODIUM 250 MG TABLET E.C. PO SCH (22:00)
[2022-11-03] MEDS ORDERED: CLOTRIMAZOLE 1% CREAM TP SCH (22:00)
[2022-11-03] MEDS ORDERED: traZODone HCL 50 MG TABLET (FP) PO SCH (22:00)
== END 2022-11-03 19:00 | disposition left against medical advice (07) | DRG 770 ==
LOC: YASAS 13:43 → Y3W 18:26
PROVIDERS: ADMIT Allergy & Immunology; ATTEND Psychiatry & Neurology Pain Medicine
PROC: HZ42ZZZ Group Counseling for Substance Abuse Treatment, Cognitive-Behavioral (ICD-10-PCS; principal; 2022-11-02)
DX: F10.20 Alcohol dependence, uncomplicated (principal); F12.20 Cannabis dependence, uncomplicated; F17.210 Nicotine dependence, cigarettes, uncomplicated; F20.0 Paranoid schizophrenia; F10.282 Alcohol dependence with alcohol-induced sleep disorder; F10.280 Alcohol dependence with alcohol-induced anxiety disorder; F10.24 Alcohol dependence with alcohol-induced mood disorder; F41.9 Anxiety disorder, unspecified; F32.A Depression, unspecified; B35.6 Tinea cruris; Z62.810 Personal history of physical and sexual abuse in childhood; Z91.410 Personal history of adult physical and sexual abuse; Z86.69 Personal history of other diseases of the nervous system and sense organs
CPT/HCPCS: 36415; 80053; 80164; 81003; 85027; 86780; 86803; C9803-CS; U0003; U0005